=== PATIENT | male | born 1990 | race Caucasian/White ===

== ENCOUNTER 2020-08-18 16:45 | Emergency (ER) | payer OTHER ==
--- NOTE | 2020-08-18 18:04 | XR ---
EXAMINATION TYPE: XR shoulder complete RT DATE OF EXAM: 08/18/2020 COMPARISON: 07/16/2020 HISTORY: Pain TECHNIQUE: 3 views FINDINGS: There is no sign of fracture nor dislocation. Joint spaces are normal. There are no patholo gic calcifications. IMPRESSION: Negative right shoulder exam. No change.
--- NOTE | 2020-08-18 19:17 | ED ---
General Adult HPI - General Chief complaint: Extremity Injury, Upper Stated complaint: R Arm Injury Time Seen by Provider: 08/18/20 18:54 Source: patient, RN notes reviewed, old records reviewed Mode of arrival: ambulatory Limitations: no limitations - History of Present Illness Initial comments: 30-year-old male patient ED for right shoulder sprain. Patient reports he was raking leaves felt a pop in her shoulders been having some pain posterior aspect. Patient reports that about 10 years ago he had a scope of that shoulder. Denies any other complaints. Denies any other injury. Has sensation and range of motion intact. Systemic: Pt denies fatigue, fever/chills, rash. Pt denies weakness, night sweats, weight loss. Neuro: Pt denies headache, visual disturbances, syncope or pre-syncope. HEENT: Pt denies ocular discharge or irritation, otalgia, rhinorrhea, pharyngitis or notable lymphadenopathy. Cardiopulmonary: Pt denies chest pain, SOB, heart palpitations, dyspnea on exertion. Abdominal/GI: Pt denies abdominal pain, n/v/d. : Pt denies dysuria, burning w/ urination, frequency/urgency. Denies new onset urinary or bowel incontinence. MSK: Pt denies myalgia, loss of strength or function in extremities. Neuro: Pt denies new onset weakness, paresthesias. - Related Data Allergies Allergy/AdvReac Type Severity Reaction Status Date / Time No Known Allergies Allergy Verified 08/18/20 17:44 Review of Systems ROS Statement: Those systems with pertinent positive or pertinent negative responses have been documented in the HPI. ROS Other: All systems not noted in ROS Statement are negative. Past Medical History Past Medical History: No Reported History History of Any Multi-Drug Resistant Organisms: None Reported Additional Past Surgical History / Comment(s): right shoulder, left ankle Smoking Status: Never smoker Past Alcohol Use History: None Reported Past Drug Use History: None Reported General Exam - General Exam Comments Initial Comments: Constitutional: NAD, AOX3, Pt has pleasant affect. HEENT: NC/AT, trachea midline, neck supple, no lymphadenopathy. Posterior pharynx non erythematous, without exudates. External ears appear normal, without discharge. Mucous membranes moist. Eyes PERRLA, EOM intact. There is no scleral icterus. No pallor noted. Cardiopulmonary: RRR, no murmurs, rubs or gallops, no JVD noted. Lungs CTAB in anterior and posterior childs. No peripheral edema. Abdominal exam: Abdomen soft and non-distended. Abdomen non-tender to palpation in all 4 quadrants. Bowel sounds active in LLQ. No hepatosplenomegaly. No ecchymosis Neuro: CN II-XII grossly intact. No nuchal rigidity. No raccon eyes, no weaver sign, no hemotympanum. No cervical spinal tenderness. MSK: Mild tenderness in the right posterior shoulder. No skin changes. Full active range of motion. Painful arc is positive. Distal pulses intact and equal. Strength is intact, 5/5. Sensation is intact. Limitations: no limitations Course Vital Signs 08/18/20 17:41 Temperature 99 F Pulse Rate 43 L Respiratory 18 Rate Blood Pressure 120/82 O2 Sat by Pulse 96 Oximetry Medical Decision Making - Medical Decision Making 30-year-old male patient to ED for right shoulder injury while raking leaves. [place] a pop. Patient VSS, afebrile, HR 90. Physical exam displayed mild tenderness intact range of motion sensation strength. Plain film is negative. Patient will be discharged with follow-up with primary care provider and orthopedic consult tomorrow. We'll gently worsening symptoms. Case discussed with Dr. Angeles. Disposition Clinical Impression: Shoulder sprain Disposition: HOME SELF-CARE Condition: Stable Instructions (If sedation given, give patient instructions): Shoulder Sprain (ED) Additional Instructions: Follow up with PCP tomorrow. Follow up with orthopedic consult tomorrow. Return to ED with any worsening symptoms. Is patient prescribed a controlled substance at d/c from ED?: No Referrals: Paris Bassett MD [Primary Care Provider] - 1-2 days Reji Carter DO [Doctor of Osteopathic Medicine] - 1-2 days
[2020-08-18 20:09] VITALS: BP 139/77; PULSE 104; RESP 16; TEMP 98.3
== END 2020-08-18 19:35 | disposition home or self-care (01) ==
LOC: EC 16:45
DX: S43.401A Unspecified sprain of right shoulder joint, initial encounter (principal); X58.XXXA Exposure to other specified factors, initial encounter; Y93.H2 Activity, gardening and landscaping
CPT/HCPCS: 99284

== ENCOUNTER → 2020-08-26 | Outpatient (CLI) | payer OTHER ==
--- NOTE | 2020-08-26 08:05 | MR ---
EXAMINATION TYPE: MR shoulder RT wo con DATE OF EXAM: 08/26/2020 COMPARISON: 08/16/2015 HISTORY: R shoulder pain Technique: Multiplanar, multiecho imaging on a 3.0 Sofia magnet is performed through the shoulder. Findings: Long head of the biceps tendon is within the bicipital groove. No significant joint effusion is evident.Glenoid labrum as visualized on this noncontrast study appea rs intact. Rotator cuff tendons are evaluated. No suspicious rotator cuff complete tear is evident. Couple of small subchondral cyst near the insertion of the supraspinatus tendon may be present. This is smaller than the comparison study. Small amount of fluid may be adjacent to the supraspinatus tendon in the subacromial bursa. Fluid signal transversing the tendon is not identified. Mild tendinosis should be considered. The acromioclavicular junction is within normal limits. Osseous signal appears normal. IMPRESSIONS: 1. Mild tendinosis of the supraspinatus tendon. 2. No suspicious change to suggest recurrent rotator cuff tear or perforation.
== END | disposition home or self-care (01) ==
LOC: RADMRIMAIN 06:21
PROVIDERS: ATTEND Orthopaedic Surgery
DX: M67.813 Other specified disorders of tendon, right shoulder (principal)

== ENCOUNTER → 2021-02-24 | Outpatient (CLI) | payer OTHER ==
[2021-02-24 16:53] LABS: Basophils % (A) 0 %; Eosinophils # (A) 0.4 k/uL (0-0.7); Eosinophils % (A) 5 %; HGB 14.6 gm/dL (13.0-17.5); Lymphocytes # (A) 2.4 k/uL (1.0-4.8); Lymphocytes % (A) 31 %; MCH 29.4 pg (25.0-35.0); MCHC 34.8 g/dL (31.0-37.0); MCV 84.4 fL (80.0-100.0); Mean Platelet Volume 9.3; Monocytes # (A) 0.4 k/uL (0-1.0); Monocytes % (A) 5 %; Neutrophils # (A) 4.5 k/uL (1.3-7.7); Neutrophils % (A) 58 %; Platelet Count 162 k/uL (150-450); RBC 4.98 m/uL (4.30-5.90); RDW 12.9 % (11.5-15.5); WBC 7.8 k/uL (3.8-10.6)
[2021-02-24 17:03] LABS: Potassium 4.2 mmol/L (3.5-5.1)
== END | disposition home or self-care (01) ==
LOC: LABPAT 16:16
PROVIDERS: ATTEND Orthopaedic Surgery
DX: Z01.812 Encounter for preprocedural laboratory examination (principal); M75.41 Impingement syndrome of right shoulder
CPT/HCPCS: 80051; 85025

== ENCOUNTER 2021-03-06 05:57 | Day surgery (SDC) | payer OTHER ==
[2021-03-05 10:21] VITALS: BMI 29.4
--- NOTE | 2021-03-05 17:58 | HP ---
HISTORY AND PHYSICAL REASON FOR ADMISSION: Surgery scheduled for 03/06/2021 HISTORY OF PRESENT ILLNESS: Steve Mercedes is a 30-year-old patient seen with progressive right shoulder pain. Options for treatment were discussed with him. He elected to proceed with arthroscopy. Consent was obtained. PAST MEDICAL HISTORY: Noncontributory. SURGICAL HISTORY: Right shoulder arthroscopy. DAILY MEDICATIONS: None. ALLERGIES: None. SOCIAL HISTORY: Denies tobacco use. PHYSICAL EVALUATION OF THE RIGHT SHOULDER: Flexion 150, abduction 80. External rotation 60, impingement positive at 90. Tenderness along the anterior lateral acromion and rotator cuff insertion site. Impingement positive at 90. Drop-arm sign is negative. Distal neurovascular exam is intact. RADIOGRAPHS: Right shoulder radiographs reveal lateral downsloping acromion, acromioclavicular joint osteoarthritis. MRI right shoulder tendinitis. IMPRESSION: 1. Right shoulder impingement with rotator cuff tendinitis. 2. Right shoulder acromioclavicular joint osteoarthritis. PLAN: Right shoulder arthroscopy with subacromial decompression, Garry procedure and debridement. Surgery 03/06/2021. MMODL / IJN: [id number] /
[2021-03-06] MEDS ORDERED: HYDROmorphone 0.5 MG/0.5 ML SYRINGE IVP PRN (05:59)
[2021-03-06] MEDS ORDERED: LACTATED RINGERS 1,000 ML IV SCH (05:59)
[2021-03-06] MEDS ORDERED: MIDAZOLAM 2 MG/2 ML VIAL IV PRN (05:59)
[2021-03-06] MEDS ORDERED: ONDANSETRON 4 MG/2 ML VIAL IVP ONE (05:59)
[2021-03-06] MEDS ORDERED: DEXAMETHASONE SOD PHOSPHATE 4 MG/ML 1 ML VIAL IV ONE (05:59)
[2021-03-06] MEDS ORDERED: LIDOCAINE 1% (10MG/ML) FOR IV START INTRADERMA ONE (06:30)
[2021-03-06] MEDS: fentaNYL (PF) 50 MCG/ML 2 ML AMP IV ONE ×2 (06:56→07:25)
[2021-03-06] MEDS ORDERED: HYDROmorphone (PF) 1 MG/ML ONE (07:24)
[2021-03-06] MEDS ORDERED: PROPOFOL 10 MG/ML 20 ML VIAL IV ONE (07:24)
[2021-03-06] MEDS ORDERED: ROPIVACAINE 5 MG/ML 30 ML VIAL ONE (07:24)
[2021-03-06] MEDS ORDERED: SUCCINYLCHOLINE CHLORIDE 100 MG/5 ML SYR IV ONE (07:24)
[2021-03-06] MEDS ORDERED: LIDOCAINE 1% INJ 10MG/ML (20 ML MDV) ONE (07:24)
[2021-03-06] MEDS ORDERED: MIDAZOLAM 2 MG/2 ML VIAL IV ONE (07:25)
[2021-03-06] MEDS ORDERED: LACTATED RINGERS 1,000 ML IV ONE (08:53)
--- NOTE | 2021-03-06 09:15 | P.OP ---
Date of Procedure: 03/06/21 Preoperative Diagnosis: Right shoulder impingement Postoperative Diagnosis: 1. Right shoulder rotator cuff tear 2. Right shoulder impingement 3. Right shoulder acromioclavicular joint osteoarthritis Procedure(s) Performed: 1. Right shoulder arthroscopic rotator cuff repair 2. Right shoulder arthroscopic subacromial decompression 3. Right shoulder arthroscopic Garry procedure Anesthesia: GETA, regional (Interscalene block) Surgeon: Reji Carter Digital Circuit Designer #1: Ganesh Lovell Estimated Blood Loss (ml): 11 Pathology: none sent Condition: stable Disposition: PACU Indications for Procedure: 30-year-old gentleman seen with progressive right shoulder pain. After treatment options were discussed, he elected to proceed with arthroscopy. Operative Findings: see description of procedure Description of Procedure: Patient underwent an interscalene block by department of anesthesia. The patient was then taken to the operative suite. The patient underwent a general anesthetic by the department of anesthesia. The patient was placed into a lateral position and secured. There was appropriate padding of the bony prominence. Right shoulder was then prepped and draped in normal sterile o rthopedic fashion. We placed the extremity in 10 pounds of longitudinal traction. A posterior incision was now made for a posterior working portal site. The trocar and cannula were inserted into the glenohumeral joint. Arthroscopy was initiated. Spinal needle was now inserted anteriorly, to ascertain the anterior working portal site. An incision was now made in that area, a trocar was inserted followed by a probe. The labrum was probed and found to be stable. There was no significant chondromalacia present. The biceps tendon was stable. There was no other abnormality noted. Instruments were now removed from the glenohumeral joint. Utilizing the posterior working portal site, the trocar and cannula were inserted into the subacromial space. Arthroscopy initiated. I made an incision 2 fingerbreadths lateral to the acromion. I introduced my trocar followed by my ArthroCare ablator. I now began ablating thick subacromial bursal tissue, which exposed the undersurface of the anterior acromion. There was diminished subacromial space. There was a very prominent anterior acromion. A motorized bur was introduced and a subacromial decompression was performed. I also excised some osteophytes off the inferior aspect of the distal clavicle. The AC joint was visualized and noted to be fairly arthritic. The motorized bur was introduced in the anterior portal site and a Garry procedure was performed without difficulty, decompressing the AC joint nicely. I turned my attention to the rotator cuff. There was significant partial tearing along the entire distal supraspinatus area. There is a motorize shaver to clean that up. I used a probe and found a full-thickness perforation intrasubstance tear in the posterior fibers of the distal supraspinatus measuring approximately 1 cm. I debrided those margins getting down to stable tendon tissue. I passed 2 sutures of Arthrex fiber tape and did a [id number] repair of the intrasubstance tear with the assistance of Ganesh WALSH suture limbs were clipped. The repair was probed and found to be stable. Instruments now removed from the portal sites. All portal sites were approximated with nylon suture. Sterile dressings were ap plied followed by a shoulder immobilizer. Ganesh WALSH assisted in this complex case. The patient was awakened, transferred to a bed, and taken to recovery in stable condition.
[2021-03-06 09:23] VITALS: TEMP 97
[2021-03-06 09:28] VITALS: RESP 16
[2021-03-06 10:24] VITALS: PULSE 83
[2021-03-06 10:45] VITALS: BP 117/73
--- NOTE | 2021-03-06 15:13 | P.ANPRN ---
Procedure Note - Anesthesia - Nerve Block Performed Right Interscalene Single Time Out Performed: Yes ([id number]) Date of Procedure: 03/06/21 Procedure Start Time: 06:56 Procedure Stop Time: 07:03 Location of Patient: PreOp Indication: Acute Post-Operative Pain, Requested by Surgeon Specifically requested for management of pain by DrCarmela: Reji Carter (\) Sedation Type: Sedate with meaningful contact maintained Preparation: Sterile Prep Position: Supine Catheter: None Needle Types: Pajunk Needle Gauge: 21 Ultrasound used to visualize needle placement: Yes Ultrasound used to observe medication spread: Yes Injectate: 0.5% Ropivacaine (see comment for volume) (30cc) Blood Aspirated: No Pain Paresthesia on Injection Noted: No Resistance on Injection: Normal Image Stored and Saved: Yes Events: Uneventful and Well Tolerated
== END 2021-03-06 11:24 | disposition home or self-care (01) ==
LOC: OR 05:57
PROVIDERS: ATTEND Orthopaedic Surgery
DX: M75.101 Unspecified rotator cuff tear or rupture of right shoulder, not specified as traumatic (principal); M25.811 Other specified joint disorders, right shoulder; M19.011 Primary osteoarthritis, right shoulder; Z79.1 Long term (current) use of non-steroidal anti-inflammatories (NSAID)
CPT/HCPCS: 64415; 76942; 29826; 29827; 29824; J2250; J1100; J0690; J2405; J2001; J3010; J1170; J2795; J0330; J2704